=== PATIENT | female | born 1965 | race Caucasian/White ===

== ENCOUNTER 2022-12-23 12:19 | Emergency (ER) | payer OTHER, SELFPAY ==
[2022-12-23] VITALS (7 sets, daily range): BP systolic 118–131; BP diastolic 52–74; PULSE 78–89; RESP 16; TEMP 36.6; O2SAT 95–98
--- NOTE | ~2022-12-23 | CT_ITS ---
EXAMINATION: CT brain wo con DATE: 12/23/2022 16:18 INDICATION: Dizziness. TECHNIQUE: Computed tomography (CT) of the head was performed without intravenous contrast. The mA wa s adjusted according to patient size. Iterative reconstruction technique was employed. The dose-lengt h product was 605.33 mGy-cm. COMPARISON: None FINDINGS: There is no intracranial hemorrhage, acute infarction, or abnormal intracranial mass lesion . The ventricles are normal in size. The orbits are normal. There is mild mucosal thickening in the p aranasal sinuses. The mastoid air cells are normal. IMPRESSION: 1. Normal brain. Reviewed, dictated and finalized at location A. NEERING SCIENTIST IMPRESSION: 1. Normal brain.
--- NOTE | ~2022-12-23 | XR_ITS ---
EXAMINATION: XR chest 1V portable INDICATION: Dizziness TECHNIQUE: Portable AP chest at 1553 hours COMPARISON: None available FINDINGS: The lungs are free of acute opacities. No pleural effusion or pneumothorax. The cardiomedia stinal silhouette is normal. IMPRESSION: 1. No acute cardiopulmonary abnormality. Reviewed, dictated and finalized at location B. LITIES ADMINISTRATOR
--- NOTE | 2022-12-23 12:29 | ECG_ITS ---
Measurements Intervals [place] Rate: 85 P: 60 TX: 126 QRS: 47 QRSD: 85 T: 40 QT: 374 QTc: 445 Interpretive Statements SINUS RHYTHM BASELINE ARTIFACT NONSPECIFIC T-WAVE ABNORMALITY BORDERLINE ECG NO PREVIOUS ECG AVAILABLE FOR COMPARISON Electronically Signed On 12-23-2022 16:22:36 GYMNASTIC COACH by Jef Watts M.D.
[2022-12-23 13:05] LABS: Basophils Absolute Auto 0.1 K/mm3 (0.0-0.1); Basophils Percent Auto 1.5 % (0.2-1.2); Eosinophils Absolute Auto 0.6 K/mm3 (0-0.3); Eosinophils Percent Auto 6.3 % (0-4.4); Hematocrit 43.9 % (37.0-47.0); Hemoglobin 14.4 g/dL (12.0-15.0); Immature Granulocyte Absolute 0.02 K/mm3 (0.00-0.031); Immature Granulocyte Percent A 0.2 % (0-0.5); Lymphocytes Absolute Auto 3.35 K/mm3 (0.9-3.2); Lymphocytes Percent Auto 37.4 % (18.3-44.2); Mean Corpuscular HGB Conc 32.8 g/dl (32-36); Mean Corpuscular Hemoglobin 31.8 pg (26-34); Mean Corpuscular Volume 96.9 fl (80-100); Mean Platelet Volume 9.4 fl (7.4-10.4); Monocytes Absolute Auto 0.5 K/mm3 (0.1-0.6); Monocytes Percent Auto 5.8 % (2.6-8.5); Neutrophils Absolute Auto 4.4 K/mm3 (1.3-6.7); Neutrophils Percent Auto 48.8 % (45.5-73.1); Platelet Count Result 323 k/mm3 (150-375); Red Blood Count 4.53 M/mm3 (4.2-5.4); Red Cell Distribution Width 14.2 % (11.5-14.5)
[2022-12-23 13:17] LABS: Alanine Aminotransferase 20 U/L (6-35); Albumin Level 4.2 g/dL (3.5-5.1); Alkaline Phosphatase 75 U/L (38-126); Anion Gap 5 mmol/L (8-16); Aspartate Amino Transferase 21 U/L (14-36); Bilirubin,Total 0.6 mg/dL (0.2-1.3); Blood Urea Nitrogen 12 mg/dL (7-17); Calcium 8.5 mg/dL (8.4-10.2); Carbon Dioxide 27 mmol/L (22-30); Chloride 102 mmol/L (98-107); Estimated CRCL calculation 80 ml/min; Estimated Glomerular Filt Rate > 60; Glucose 106 mg/dL (65-110); Sodium 134 mmol/L (137-145)
--- NOTE | 2022-12-23 15:49 | ED.GENADULT ---
HPI - General Adult General Chief complaint: Dizziness Stated complaint: dizziness Time Seen by Provider: 12/23/22 15:19 Source: RN notes reviewed History of Present Illness HPI narrative: Patient presents emergency room from home for dizziness. Patient states she initially had awoken from sleep approximately 630 this morning when she felt dizzy but got back to bed and states that she woke up at approximately 1130 and had been feeling dizzy to try to get up and felt she was going to pass out. She states that the dizziness is remained with her since that time. States the dizziness is worse with getting up and moving and better with rest but does feel dizzy at rest she denies any numbness or tingling in the extremity she denies any vision changes she denies any chest pain shortness of breath nausea vomiting or any other symptoms Related Data Allergies Allergy/AdvReac Type Severity Reaction Status Date / Time Penicillins Allergy Severe Anaphylaxis Verified 12/23/22 15:13 tetracycline Allergy Unknown Rash Verified 12/23/22 15:13 ibuprofen [From Motrin] Allergy Wheezing Verified 12/23/22 15:13 TETRACYCLINE Allergy Unknown Dizziness Uncoded 12/23/22 15:13 Review of Systems Review of Systems: Gen.: Denies fevers or chills Eyes: Denies eye pain or visual change ENT: Denies congestion Respiratory: Denies shortness of breath or cough CV: Denies chest pain or palpitations GI: Denies abdominal pain nausea, emesis Musculoskeletal: Denies back pain or muscle pain Neuro: See HPI Skin: Denies rash Except as documented, all other systems reviewed and negative PMFSH Past Medical History Medical History (Updated 12/23/22 @ 19:18 by Sidney Logan DO) Patient denies significant medical history Social History Social History (Updated 12/23/22 @ 15:51 by Sidney Logan DO) Smoking status: Never smoker Exam Narrative: APPEARANCE: No acute distress, nontoxic, resting in bed HEENT: Normocephalic, atraumatic, OMM, TMs clear bilaterally EYES: PERRL, EOMI RESPIRATORY: No respiratory distress, clear to auscultation bilaterally with no rhonchi wheezing or rales CARDIOVASCULAR: RRR s murmur ABDOMINAL: Soft, nontender, nondistended MUSCULOSKELETAL: Moves all extremities. No clubbing, cyanosis or edema. NEURO: A and O ?3, following commands, speech normal, cranial nerves II through XII grossly intact,muscle strength 5 out of 5 bilateral upper and lower extremities no pronator drift SKIN:: Warm, dry. Normal Color PSYCHIATRIC: Normal affect/mood Course Course Emergency Course: Patient states dizziness is improved at this time she has been able to get up and ambulate with no difficulty Discussed with patient results of workup and diagnosis. Discussed need for follow-up with primary care, proper use of medication, and reasons to return to the emergency department. Patient understands and agrees to current treatment plan Vital Signs Vital signs: Vital Signs Temperature 97.9 F 12/23/22 12:23 Pulse Rate 89 12/23/22 12:23 Respiratory Rate 16 12/23/22 12:23 Blood Pressure 118/63 12/23/22 12:23 Pulse Oximetry 98 12/23/22 12:23 Oxygen Delivery Room Air 12/23/22 12:23 Temperature 97.9 F 12/23/22 12:23 Pulse Rate 88 12/23/22 18:10 Respiratory Rate 16 12/23/22 18:10 Blood Pressure 125/74 12/23/22 18:10 Pulse Oximetry 96 12/23/22 18:10 Oxygen Delivery Room Air 12/23/22 12:23 Medical Decision Making MDM Narrative Medical decision making narrative: Patient's episode of near-syncope is not felt due to high risk cause. Near-syncopal episode was brief and patient is now back to normal mental status. EKG is reviewed without high-risk changes for syncope: There are no signs of prolonged QT or Brugada syndrome. Patient ambulates with a steady gait and is felt to be a reasonable candidate for further evaluation as an outpatient management Patient's vertigo is felt to be likely peripheral in origin. There
[2022-12-23] MEDS: MECLIZINE HCL 25 MG TABLET PO (16:14)
[2022-12-23] MEDS: SODIUM CHLORIDE 0.9% IV 1,000 ML 999 ML IV CONT (16:14)
[2022-12-23 16:20] LABS: Appearance Urine Clear (Clear); Bilirubin Urine Negative (Negative); Blood Urine Trace-intact (Negative); Color Urine Yellow (Yellow); Glucose Urine UA Negative (Negative); Ketones Urine Negative (Negative); Leukocyte Esterase Ur Negative LEU/UL (Negative); Nitrate Urine Negative (Negative); Protein Urine Negative (Negative); Urobilinogen Urine 0.2 mg/dL (<2.0)
[2022-12-23 16:25] LABS: Bacteria Urine Trace /hpf; Mucus Urine Rare /lpf; RBC Urine 0-2 /hpf (0-2); Squamous Epithelial Cell Urine Occasional /hpf (Few); WBC Urine 0-3 /hpf
[2022-12-23 16:31] LABS: Add Urine Microscopic? YES
[2022-12-23 16:47] LABS: Influenza A QL RT-PCR Negative (Negative); Influenza B QL RT-PCR Negative (Negative); SARS-CoV-2 RNA PCR Negative
[2022-12-23 18:51] LABS: Troponin I < 0.012 ng/mL (0.000-0.034)
== END 2022-12-23 19:29 | disposition home or self-care (01) ==
PROVIDERS: Emergency Provider Emergency Medicine
DX: R55 Syncope and collapse (principal); Z20.822 Contact with and (suspected) exposure to COVID-19; R94.31 Abnormal electrocardiogram [ECG] [EKG]
CPT/HCPCS: 36415; 70450; 71045; 80053; 81001; 81025; 84484; 85025; 87636; 93005; 96360; 96361; 99284; A9270; J7030

== ENCOUNTER 2023-10-20 18:12 | Emergency (ER) | payer OTHER, SELFPAY ==
--- NOTE | 2023-10-20 18:16 | ED.LOWEXIN ---
HPI - Extremity Injury (Lower) General Chief Complaint: Extremity Injury, Lower Stated Complaint: Injured leg Time Seen by Provider: 10/20/23 18:16 Source: patient Mode of arrival: ambulatory Limitations: no limitations History of Present Illness HPI Narrative: Patient is a 58-year-old female who presents with right knee pain that happened during an injury a work on . Patient reports she was falling and stuck right leg out straight locking knee and feeling a pop on lateral side of knee. Patient states each day the pain has improved until today it has states same. Patient still reports mild swelling to lateral side of knee and pain with walking. Has not been taking anything for pain. Patient has been using heating pad. Denies any numbness, tingling or weakness to lower extremity. Reports swelling has improved significantly. Related Data Allergies Allergy/AdvReac Type Severity Reaction Status Date / Time Penicillins Allergy Severe Anaphylaxis Verified 10/20/23 18:21 tetracycline Allergy Unknown Rash Verified 10/20/23 18:21 doxycycline Allergy Vomiting Verified 10/20/23 18:21 ibuprofen [From Motrin] Allergy Wheezing Verified 10/20/23 18:21 TETRACYCLINE Allergy Unknown Dizziness Uncoded 10/20/23 18:21 Review of Systems Review of Systems: All systems reviewed & are unremarkable except as noted in HPI and below Constitutional: Constitutional: Denies body ache(s), Denies chills, Denies fatigue, Denies fever(s), Denies headache(s), Denies malaise and Denies weakness Eyes: Eyes: Denies blurry vision, Denies irritation and Denies loss of vision ENT: Denies otalgia, Denies headache(s), Denies nasal discharge, Denies sinus pain and Denies sore throat Cardiovascular: Cardiovascular: Denies chest pain, Denies irregular heart rhythm and Denies dyspnea Respiratory: Respiratory: Denies dyspnea Gastrointestinal: Gastrointestinal: Denies abdominal pain, Denies melena, Denies hematochezia, Denies diarrhea, Denies nausea and Denies vomiting Musculoskeletal: Musculoskeletal: Denies back pain, Denies myalgias and Reports arthralgias Integumentary/Breasts: Skin/Breast: Denies pruritus and Denies rash Neurologic: Denies headache(s), Denies loss of vision and Denies weakness Psychiatric: Psychiatric: Reports no additional psychiatric complaints Endocrine: Endocrine: Denies fatigue PMFSH Past Medical History Medical History Patient denies significant medical history Social History Social History Smoking status: Never smoker Comments At time of signature, agree with nursing past medical, surgical, social and family history. There is no relevant family history pertinent to the presenting complaint. Exam Const: General: cooperative, healthy appearing, comfortable, no acute distress and well nourished Nutritional Appearance: well nourished Orientation/consciousness: patient oriented x3 Limitations: no limitations HENMT: Head: normal to inspection, normocephalic and atraumatic Ears: hearing grossly normal bilaterally and external ears normal Face/Nose/Sinus: Normal external nose present, normal facial exam and face symmetric Face and sinus: normal facial exam and face symmetric Mouth: Yes lip normal Eyes: General: appearance normal, both eyes and all related structures Alignment and Position: alignment normal and position normal Periorbital: periorbital findings normal Eyelids: eyelids normal Pupils: Equal, round and reactive pupils present EOM: EOMs intact bilaterally Neck: Neck: normal visual inspection, full ROM and supple Chest: Chest palpation & inspection: normal inspection of the chest Resp: Effort & Inspection: normal respiratory effort and able to speak in complete sentences Auscultation: clear to auscultation bilaterally Cardio: Rate: regular rate Rhythm: regular rhythm Heart sounds: S1 normal
[2023-10-20 18:23] VITALS: BP 141/74; PULSE 90; RESP 16; TEMP 36.6; O2SAT 99
== END 2023-10-20 18:44 | disposition home or self-care (01) ==
PROVIDERS: Emergency Provider Nurse Practitioner Family
DX: S83.421A Sprain of lateral collateral ligament of right knee, initial encounter (principal); W19.XXXA Unspecified fall, initial encounter
CPT/HCPCS: 99213; G0463

== ENCOUNTER 2025-09-17 16:41 | Emergency (ER) | payer OTHER, MEDICAID, SELFPAY ==
--- OUTSIDE RECORDS SUMMARY | 2025-09-17 16:47 | XMS_ITS | Clinical Summary ---
Author Organization [facility] Address [address] [place] [address] Care Team Providers Care Coke Oven Mason Name Role Phone Perez Lerma MD Primary Care Provider + Desirae Bruce DPM Unavailable [phone] Allergies Active Allergy Reactions Criticality Noted Date Comments Ibuprofen Other (see comment) 05/25/2019 Wheezing issues Penicillins Anaphylaxis High 05/25/2019 Tetracyclines & Related Rash Low 05/29/2019 Medications Terbinafine 1 % Gel Apply fingertip amount to affected toe twice daily 12 g 2 Active HYDROXYZINE HCL OR Take by mouth as needed. Active Acetaminophen (TYLENOL 8 HOUR OR) Take by mouth as needed. Active traMADol (ULTRAM) 50 MG tabletIndications :Chronic Pain Take 1 tablet (50 mg total) by mouth every 12 (twelve) hours as needed for Pain. Indications: Chronic Pain 60 tablet 4 Active losartan (COZAAR) 50 MG tabletIndications :Primary hypertension Take 1 tablet (50 mg total) by mouth daily. 30 tablet 1 5 Active Active Problems Problem Noted Date Diagnosed Date Hypertrophy of fat pad of knee 05/06/2025 Chondromalacia of left patella 05/06/2025 Anxiety with depression 05/23/2022 Chronic right-sided low back pain 04/26/2022 Obesity (BMI 30.0-34.9) 03/26/2022 Gross hematuria 06/10/2019 Ureteral calculus, left 06/03/2019 Nephrolithiasis 06/03/2019 Encounters Date Type Department Care Team Description 07/19/[address] [id number] Perez Lerma MD Fax 07/18/2025 Results Follow-Up [address] [address] Perez Lerma MD Short Term Holter 24 or 48 Hours 06/30/2025 10:00 AM CDT Telephone [facility], [address] [address] Perez Lerma MD Holter Monitor 06/23/2025 4:59 PM CDT - 06/23/2025 11:59 PM CDT Hospital Encounter [facility] [address] [place] [id number] Nishi Delvalle, IMMUNOHEMATOLOGIST Scarlet Woodruff, TECHNICAL SERVICE REPRESENTATIVE Knee Pain Discharge Disposition: Home or Self Care (Routine Discharge) 06/23/2025 Travel 06/20/2025 4:51 PM CDT - 06/20/2025 11:59 PM CDT Hospital Encounter [facility] [address] [place] [id number] Nishi Delvalle, IMMUNOHEMATOLOGIST Angella Pagan, TECHNICAL SERVICE REPRESENTATIVE Knee Pain Discharge Disposition: Home or Self Care (Routine Discharge) 06/20/2025 1:40 PM CDT Office Visit [address] [phone] Perez Lerma MD Follow Up (Pt here for a handful of issues.) 06/20/2025 Travel 06/17/2025 1:59 PM CDT - 06/17/2025 11:59 PM CDT Hospital Encounter [facility] [address] [place] [address] Amor Chan, PT Nishi Delvalle, IMMUNOHEMATOLOGIST Knee Pain Discharge Disposition: Home or Self Care (Routine Discharge) 06/17/2025 Travel from Last 3 Months Immunizations Immunization Administration Dates Next Due Tdap (Adacel) 04/16/2022 Family History Medical History Relation Comments Arthritis Daughter 1 Started at 2 yea rs of age when came in contact with tree pollen Asthma Daughter 1 Since age 3 Mental Health Daughter 1 Zoloft for anxie ty and depression Asthma Daughter 2 Same time as Nolberto en contact with yes pollen. Childhood grew out of it Retardation/Learning Difficulties Daughter 3 No known cause Arthritis Father Adult onset Asthma Father COPD Father Diabetes Father Heart Disease Father Hypertension Father Heart Disease Maternal Grandfather Diabetes Maternal Grandmother Type 2 Arthritis Mother Cancer Mother Colon Depression Mother Diabetes Paternal Aunt Juvenile Type I Early Paternal Grandmother Age 44: Con gestive heart failure from valve insufficiency Diabetes Paternal Uncle Type 2 Heart Disease Sister 1 pvd Sister 1 Arthritis Sister 2 Started at 5 yea rs old when came in contact with a cat Asthma Sister 2 Since age 5 Defects Sister 3 No one knows cau se or diagnosis in spite of testing Breast Cancer Neg Hx Relation Status Comments Daughter 1 Alive Daughter 2 Alive Daughter 3 Alive Father Maternal Grandfather Alive Maternal Grandmother Alive Mother Paternal Aunt Alive Paternal Grandmother Alive Paternal Uncle Alive Sister 1 Sister 2 Alive Sister 3 Alive Social History Tobacco Use Types Packs/Day Years Used Date Smoking Tobacco: Every Day Cigarettes 0.8 25 Smokeless Tobacco: Never Tobacco Cessation:Ready to Q uit: Not Asked; Counseling Given: Yes Comments:current smoker Alcohol Use Standard Drinks/Week Comments No 0 (1 standard drink = 0.6 oz pur e alcohol) AUDIT-C Answer Date Recorded Frequency of Alcohol Consumption Never 05/25/2019 Average Number of Drinks Not on file 019 Frequency of Binge Drinking Not on file 07/2019 PHQ-2 Answer Date Recorded Patient Health Questionnaire-2 Score 2 03/14/2025 Comments No Sex and Gender Information Value Date Recorded Sex Assigned at Not on file Legal Sex Female 7:26 PM CDT Gender Identity Female 03/21/2022 6:22 AM CDT Sexual Orientation Straight 03/21/2022 6: 22 AM CDT Last Filed Vital Signs Vital Sign Reading Time Taken Comments Blood Pressure 138/82 06/20/2025 1:43 PM CDT Pulse 95 06/20/2025 1:43 PM CDT Temperature 36.9 C (98.5 F) 06/20/2025 1:43 PM CDT Respiratory Rate 20 06/20/2025 1:43 PM CDT Oxygen Saturation 95% 06/20/2025 1:43 PM CDT Inhaled Oxygen Concentration - - Weight 80.9 kg (178 lb 6.4 oz) 06/20/2025 1:43 P M CDT Height 167.6 cm (5' 6) 06/20/2025 1:43 PM CDT Body Mass Index 28.79 06/20/2025 1:43 PM CDT Plan of Treatment Health Maintenance Due Date Last Done Comments Cervical Cancer Screening Pa p Smear (Age 30 to 64) Every 3 Years 1964 Colorectal Cancer Screening Colonoscopy (10 Years) 1964 Annual Physical 1967 Hepatitis C 1982 Pneumococcal Vaccine: 50+ Years (1 of 2 - PCV) 1983 Cervical Cancer Screening Pa p with HPV Testing (Age 30 to 64) Every 5 Years 1994 Cervical Cancer Screening wi th HPV 1994 Zoster Vaccines (1 of 2) 2014 COVID-19 Vaccine (4 - 2024-2 6 season) 2025 11/22/2021, 02/28/2021, 01/04/2021 Influenza Adult (#1) 2025 Mammogram Screening 02/11/2026 02/12/2024 DTaP, Tdap and Td Vaccines ( 2 - Td or Tdap) 04/16/2032 04/16/2022 RSV Immunization or 60+ Years (1 - 1-dose 75+ series) 2039 PHQ-2 (Physician Popejoy) Completed 03/14/2025 Hepatitis A Vaccines Aged Out No long er eligible based on patient's age to complete this topic Meningococcal B Vaccine Aged Out No l onger eligible based on patient's age to complete this topic Meningococcal Vaccine Aged Out No brad mariia eligible based on patient's age to complete this topic RSV Immunizations Under 20 Months Aged Out No longer eligible b ased on patient's age to complete this topic Medical Devices Implanted Type Area Vegetable Farmer Device Identifier Shelf Expiration Date Model / Serial / Lot Stent Bard [place] 6fr X 26cm - [id number] Implanted:Qty: 1 on 06/22/2019 by Mayank Nieves MD at [facility] Stent Left: Ureter [employer] 09/23/2023 [id number] / / [id number] Procedures Procedure Name Priority Date/Time Associated Diagnosis Comments XTRNL ECG REC<48 HRS RECORDING SCAN A/R R&I Routine 07/12/2025 4:05 PM CDT Palpitations MG SCREENING W ILIANA JADEN DIGI Routine 02/12/2024 1:16 PM CDT Visit for screening mammogram from Last 3 Months or Most Recently Relevant to Health Maintenance Results * Short Term Holter 24 or 48 Hours (07/12/2025 4:05 PM CDT) Impressions [facility] - 07/12/2025 4:05 PM CDT [facility] [address] [place], [place] [address] HOLTER MONITOR REPORT Patient Name: Suri Edmond : 1965 Shellfish Manager Date: 07/07/2025@12:57 PM Performed At: Home, [place] Interpreting Director Of Testing: Dong Red MD PCP: PEREZ LERMA MD Ordering Provider: PEREZ LERMA MD INDICATION: Palpitations DURATION OF MONITORIN hours, 0 minutes BASELINE RHYTHM: Sinus rhythm HEART RATE: Minimum: 67 BPM, Maximum: 128 BPM, Average: 82 BPM PAUSES: 0 (> 3.0 seconds) INTERPRETATION: A 48hrs Holter was analyzed which did not include symptom triggered episodes. There were 240,317 QRS complexes analyzed. The baseline rhythm was sinus rhythm. There were rare isolated premature ventricular contractions (<1%). There was also rare isolated premature atrial contractions (<1%). There was 0 minutes of bradycardia recorded. There was 2 hours 15 minutes of tachycardia. CONCLUSION: 48hrs Holter with no clinically significant arrhythmias. Interpreting Director Of Testing: Dr. Dong Red Perez Lerma MD PROCEDURES Final Re sult [facility] CARDIOVASCULAR * MG SCREENING W ILIANA GASTELUM (02/12/2024 1:16 PM CDT) Anatomical Region Laterality Modality Breast Bilateral Mammography 02/12/2024 5:06 PM CDT Narrative 02/12/2024 5:13 PM CDT EXAMINATION: Digital bilateral screening mammogram with 3-D tomosynthesis EXAM DATE/TIME: 02/12/2024 1:01 PM REASON FOR EXAM: screening COMPARISON: Reestablish baseline Technique: Digital screening mammography of both breasts was performed in addition to 3-D Tomosynthesis technique. This study was read with the assistance of a computer-aided detection system. Tissue density: There are scattered areas of fibroglandular density. Findings: Benign calcifications. There is no focal asymmetry, dominant mass lesion, area of skin thickening, or cluster of suspicious appearing calcifications in either breast to suggest malignancy. ===== IMPRESSION: ===== 1. No mammographic evidence of malignancy. Assessment: ACR BI-RADS 2 - BENIGN FINDING(S) Recommendation: 1:Routine Screening Bilateral Comments: Ordered By: PEREZ LERMA Interpreted By: Len Vega, 02/12/2024 5:06 PM Perez Lerma MD MAMMO Final Re sult from Last 3 Months or Most Recently Relevant to Health Maintenance Insurance MEDICAID MEDICAL REIM[employer]SEMENTS OF [place] Advance Directives Documents on File Type Date Recorded Patient Paper Bag Inspector Expl anation Legal Documents 05/25/2019 9:07 AM realease of health info * Full Code (Latest Code Status on File) Date Activated Date Inactivated Comments 06/22/2019 2:38 PM 06/22/2019 6:30 PM Care Teams Coke Oven Mason Relationship Specialty Start Date End Date Perez Lerma MD [address] [facility] [address] [place] [address] PCP - General FAMILY PRACTICE 01/26/24 Desirae Bruce DPM [address] [place] [address] Referring Physician Cnmt - Foot & Ankle Surgery 09/06/25
--- OUTSIDE RECORDS SUMMARY | 2025-09-17 16:47 | XMS_ITS | Encounter Summary ---
Author Organization [facility] Address [facility] [place] [address] Care Team Providers Care Resident Programs Assistant Name Role Phone Isabel Teran NP Primary Care Provider [phone] Perez Winkler MD Primary Care Provider + Desirae Bruce DPM Unavailable [phone] Encounter Details Date Type Department Care Team (Late st Contact Info) Description 06/04/2022 [employer] Message Enc [facility] Family & Internal Medicine [address] [address] [facility] Paperwork Social History Tobacco Use Types Packs/Day Years Used Date Smoking Tobacco: Every Day Cigarettes 0.8 25 Smokeless Tobacco: Never Comments:current smoker Alcohol Use Standard Drinks/Week Comments No 0 (1 standard drink = 0.6 oz pur e alcohol) AUDIT-C Answer Date Recorded Frequency of Alcohol Consumption Never 05/25/2019 Average Number of Drinks Not on file 019 Frequency of Binge Drinking Not on file 07/2019 PHQ-2 Answer Date Recorded PHQ-2 Score - If the patient scores above 3, please move on to questions 3-9 6 03/26/2022 Comments No Sex and Gender Information Value Date Recorded Sex Assigned at Not on file Legal Sex Female 7:26 PM CDT Gender Identity Female 03/21/2022 6:22 AM CDT Sexual Orientation Straight 03/21/2022 6: 22 AM CDT COVID-19 Exposure Response Date Recorded In the last 10 days, have yo u been in contact with someone who was confirmed or suspected to have Coronavirus/COVID-19? No / Unsure 05/31/2022 1:31 PM CDT documented as of this encounter Plan of Treatment Not on file documented as of this encounter Visit Diagnoses Not on filedocumented in this encounter Additional Health Concerns Assessment Noted Time PHQ-9 Depression Total Score: 20 022 10:30 AM CDT documented as of this encounter Care Teams Resident Programs Assistant Relationship Specialty Start Date End Date Isabel Teran, MAINTENANCE SUPERVISOR MECHANICAL [address] [facility] [address] [place] [address] PCP - General Nurse Practitioner Family 03/22/2201/15 Perez Winkler MD [address] [facility] [address] [place] [address] PCP - General FAMILY PRACTICE 01/26/24 Desirae Bruce DPM [address] [place] [address] Referring Physician Cancer Researcher - Foot & Ankle Surgery 09/06/25 documented as of this encounter
--- OUTSIDE RECORDS SUMMARY | 2025-09-17 16:47 | XMS_ITS | Clinical Summary ---
Author Organization [facility] Address [address] [facility] [address] Umanzor: Epic Prelude ADT [place] [address] Care Team Providers Care Road Train Driver Name Role Phone Unavailable Primary Care Provider Unavailabl e Encounters Date Type Department Care Team Description 09/14/2025 External Device Data STL ABSTRACTION Provider, Abstract 09/14/2025 External Device Data ST[facility] ABSTRACTION Provider, Abstract 06/22/2025 External Device Data STL ABSTRACTION Provider, Abstract 06/21/2025 External Device Data STL ABSTRACTION Provider, Abstract 06/21/2025 External Device Data STL ABSTRACTION Provider, Abstract from Last 3 Months Social History Tobacco Use Types Packs/Day Years Used Date Smoking Tobacco: Never Assessed Comments Unknown Sex and Gender Information Value Date Recorded Sex Assigned at Not on file Legal Sex Female 4:28 AM FLUME TENDER Gender Identity Not on file Sexual Orientation Not on file Plan of Treatment Health Maintenance Due Date Last Done Comments DTAP/TDAP/TD VACCINES (1 - Tdap) 1983 HPV/Cotest (21-29) 1985 CERVICAL CANCER SCREENING 1994 HPV/Cotest (30-65) 1994 PAP SMEAR 1994 BREAST CANCER SCREENING 2004 COLORECTAL SCREENING 2009 Colorectal Cancer Screening 2009 FIT-DNA Q 3 years 2009 FIT/FOBT Q 1 year 2009 Flex Sig/CT Colonography Q 5 years 2009 ZOSTER VACCINE (1 of 2) 2014 INFLUENZA VACCINE (#1) 2025 RSV VACCINE (60+ or ) (1 - 1-dose 75+ series) 2039
--- OUTSIDE RECORDS SUMMARY | 2025-09-17 16:47 | XMS_ITS | Encounter Summary ---
Author Organization [employer] Address [address] [place] [address] Care Team Providers Care Radiation Protection Engineer Name Role Phone Unavailable Primary Care Provider Unavailabl e Encounter Details Date Type Department Care Team (Late st Contact Info) Description 09/14/2025 External Device Data [facility] ABSTRACTION Provider, Abstract NO ADDRESS ON FILE Social History Tobacco Use Types Packs/Day Years Used Date Smoking Tobacco: Never Assessed Comments Unknown Sex and Gender Information Value Date Recorded Sex Assigned at Not on file Legal Sex Female 4:28 AM REMOTE ADVISOR Gender Identity Not on file Sexual Orientation Not on file documented as of this encounter Plan of Treatment Not on file documented as of this encounter Visit Diagnoses Not on filedocumented in this encounter
--- OUTSIDE RECORDS SUMMARY | 2025-09-17 16:47 | XMS_ITS | Encounter Summary ---
Author Organization [employer] Address [address] [place] [address] Care Team Providers Care Animal Rides Manager Name Role Phone Unavailable Primary Care Provider Unavailabl e Encounter Details Date Type Department Care Team (Latest Contact Info) Description 11/26/1999 Inpatient Historical HIS PATIENT IN A BED Evelina Hwang MD [address] [facility] [address] [place] [address] First-degree perineal laceration, with delivery (Primary Dx) Social History Tobacco Use Types Packs/Day Years Used Date Smoking Tobacco: Never Assessed Comments Unknown Sex and Gender Information Value Date Recorded Sex Assigned at Not on file 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
--- OUTSIDE RECORDS SUMMARY | 2025-09-17 16:47 | XMS_ITS | Encounter Summary ---
Author Organization [employer] Address [address] [place] [address] Care Team Providers Care Electronics Recycler Name Role Phone Unavailable Primary Care Provider Unavailabl e Encounter Details Date Type Department Care Team (Latest Contact Info) Description 06/18/1999 Outpatient Historical [facility] Evelina Hwang MD [address] [facility] [address] [place] [address] Elderly multigravida with antepartum condition or complication (Primary Dx) Social History Tobacco Use Types Packs/Day Years Used Date Smoking Tobacco: Never Assessed Comments Unknown Sex and Gender Information Value Date Recorded Sex Assigned at Not on file 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
--- OUTSIDE RECORDS SUMMARY | 2025-09-17 16:47 | XMS_ITS | Encounter Summary ---
Author Organization [facility] Address [facility] [place] [address] Care Team Providers Care Pcb Designer Name Role Phone Perez Winkler MD Primary Care Provider + Desirae Bruce DPM Unavailable [phone] Encounter Details Date Type Department Care Team (Late st Contact Info) Description 04/21/2025 curated.by [facility] [address] [place] [address] [employer], [facility] Provider Letter Social History Tobacco Use Types Packs/Day Years [...] Orientation Straight 03/21/2022 6: 22 AM CDT documented as of this encounter Progress Notes * Tammy Robb RN - 04/22/2025 1:11 PM CDT [facility] paperwork faxed. TAMMY ROBB RN 04/22/2025 documented in this encounter Plan of Treatment Not on file documented as of this encounter Visit Diagnoses Not on filedocumented in this encounter Additional Health Concerns Assessment Noted Time PHQ-9 Depression Total Score: 16 02/01/ 024 4:11 PM CDT documented as of this encounter Care Teams Pcb Designer Relationship Specialty Start Date End Date Perez Winkler MD [address] [facility] [address] [place] [address] PCP - General FAMILY PRACTICE 01/26/24 Desirae Bruce DPM [address] [place] [address] Referring Physician Vehicle Trimmer - Foot & Ankle Surgery 09/06/25 documented as of this encounter
--- OUTSIDE RECORDS SUMMARY | 2025-09-17 16:47 | XMS_ITS | Clinical Summary ---
Author Organization [facility] Address [address] [facility] [place] [address] Care Team Providers Care Supervisor Composing Room Name Role Phone Perez Winkler MD Primary Care Provider + Source Comments [facility],non-owned Affiliates and Associated Physician Practices is amultiple site organization consisting of ambulatory clinics and hospital sitesin [place], [place] and [place]. This disclosure is being madepursuant to the Care Everywhere program and may not contain all information available regarding this patient. Last updated 18.[facility] Allergies Active Allergy Reactions Criticality Noted Date Comments Ibuprofen Other 05/25/2019 Wheezing issues Penicillins Anaphylaxis High 05/25/2019 Tetracyclines Rash Medium 05/29/2019 Medications * Be aware that medications may not be up to date on this document. Alwaysverify current medications with the patient. losartan (Cozaar) 50 MG tablet Take 1 (one) tablet by mouth once daily Active Acetaminophen (TYLENOL 8 HOUR PO) Active cyclobenzaprine (Flexeril) 10 MG tablet Take 1 (one) tablet by mouth 3 times daily 30 tablet 08/15/2025 Active diclofenac sodium (Voltaren) 1 % gel Apply 2 (two) g to affected area 4 times daily 100 g 08/15/2025 Active methylPREDNISol one (Medrol Dosepak) 4 MG tablet Take by mouth as directed Take as directed by mouth per package instructions. 21 tablet 08/15/2025 Active Encounters Date Type Department Care Team Description 08/15/2025 1:45 PM CDT Office Visit [facility] - Orthopedic Surgery [address] [place] [phone] Jose Woods MD Lumbar pain (Primary Dx) 08/15/2025 1:29 PM CDT - 08/15/2025 11:59 PM CDT Hospital Encounter [facility] - Orthopedics [address], [address] [place] [phone] Jose Woods MD Discharge Disposition: Home or Self Care 08/15/2025 Telephone [facility] - [facility] Surgery [address] [place] [phone] Jose Woods MD Question 08/15/2025 Travel 08/08/2025 Orders Only [facility] - [facility] [address] [place] [phone] Jose Woods MD Lumbar pain from Last 3 Months Social History Tobacco Use Types Packs/Day Years Used Date Smoking Tobacco: Never Assessed PHQ-2 Answer Date Recorded Patient Health Questionnaire-2 Score 4 08/15/2025 Comments Unknown Sex and Gender Information Value Date Recorded Sex Assigned at Not on file Legal Sex Female 2:45 PM CDT Gender Identity Not on file Sexual Orientation Not on file Plan of Treatment Health Maintenance Due Date Last Done Comments COLOGUARD (AGES 45-75) - COL ON CA SCREENING 1964 COLON MONITORING 1964 COLONOSCOPY - COLON CA SCREENING 1964 CT COLONOGRAPHY - COLON CA SCREENING 1964 Colorectal Cancer Screening 1964 FIT - COLON CA SCREENING 1964 FLEX SIG - COLON CA SCREENING 1964 LIPID TESTING 1964 HIV SCREENING 1979 HEPATITIS C SCREENING 07/06/1982 DTAP/TDAP/TD VACCINES (1 - Tdap) 1983 PAP SMEAR 1985 PNEUMOCOCCAL VACCINE 50+ (1 of 1 - PCV) 2014 ZOSTER VACCINE (1 of 2) 2014 DEPRESSION SCREENING 11/17/2024 COVID-19 VACCINE (1 - 2023-2 5 season) 2025 INFLUENZA VACCINE (#1) 2025 MAMMOGRAM 02/11/2026 02/12/2024, 02/12/2024 Respiratory Syncytial Virus (RSV) Vaccine Pt: or over 60 yrs (1 - 1-dose 75+ series) 2039 HEPATITIS B VACCINE Aged Out No longe r eligible based on patient's age to complete this topic HIB VACCINE Aged Out No longer eligi ble based on patient's age to complete this topic HPV VACCINE Aged Out No longer eligi ble based on patient's age to complete this topic MENINGOCOCCAL (Group B) VACCINE SHARED DECISION-MAKING Aged Out No longer eligible based on patient's age to complete this topic MENINGOCOCCAL GROUPS A/C/Y/W VACCINE Aged Out No longer eligible b ased on patient's age to complete this topic Procedures Procedure Name Priority Date/Time Associated Diagnosis Comments XR LUMBAR SPINE 2 OR 3VW Routine 08/15/2025 1:34 PM CDT Lumbar pain from Last 3 Months Results * XR Lumbar Spine 2 or 3Vw (08/15/2025 1:34 PM CDT) Anatomical Region Laterality Modality Spine Radiographic Jessica ging 08/15/2025 1:40 PM CDT Impressions 08/15/2025 1:45 PM CDT IMPRESSION: Grade 1 anterior spondylolisthesis of L5 relative to S1 seen in association with mild to moderate disc space narrowing and facet joint degenerative changes. Possible underlying pars defect cannot be excluded with certainty at the level of L5. Mild levoscoliosis. Radiodense material to the right of the lumbar spine as discussed above. > Interpreting Provider: Sidney Strauss MD on 08/15/2025 1:45 PM Narrative 08/15/2025 1:45 PM CDT PROCEDURE: XR LUMBAR SPINE 2 OR 3VW DATE/TIME OF EXAM: 08/15/2025 1:34 PM CLINICAL INFORMATION: None relevant/not provided if blank. Indication: M54.50: Lumbar pain Additional History: COMPARISON: None. FINDINGS: Full length weightbearing AP lateral views of the lumbar spine were obtained as well as a spot lateral view of the lumbosacral angle. There appears to be some curvilinear radiodense material seen to the right of the L2-L3 and L3 levels as well as radiodense material with a possible fluid/fluid level seen to the right of the L4-L5 level. This could be in relationship to the biliary tree, the right side of the urinary tract or the gastrointestinal tract. There are no prior studies available for comparison. On the AP view there is subtle levorotation extending from L3 to L5. On the lateral view there is approximately 8 mm of anterior spondylolisthesis of what appears to be L5 relative to S1. There is associated facet joint degenerative changes and moderate disc space narrowing. The remaining disc spaces and all of the lumbar vertebrae otherwise appear normal in height. Procedure Note Sidney Strauss MD - 08/15/2025 PROCEDURE: XR LUMBAR SPINE 2 OR 3VW DATE/TIME OF EXAM: 08/15/2025 1:34 PM CLINICAL INFORMATION: None relevant/not provided if blank. Indication: M54.50: Lumbar pain Additional History: COMPARISON: None. FINDINGS: Full length weightbearing AP lateral views of the lumbar spine were obtained as well as a spot lateral view of the lumbosacral angle. There appears to be some curvilinear radiodense material seen to theright of the L2-L3 and L3 levels as well as radiodense material with apossible fluid/fluid level seen to the right of the L4-L5 level. This could be in relationship to the biliary tree, the right side of the urinary tract or the gastrointestinal tract. There are no prior studies available for comparison. On the AP view there is subtle levorotation extending from L3 to L5. Onthe lateral view there is approximately 8 mm of anterior spondylolisthesisof what appears to be L5 relative to S1. There is associated facet joint degenerative changes and moderate disc space narrowing. The remaining disc spaces and all of the lumbar vertebrae otherwiseappear normal in height. IMPRESSION: Grade 1 anterior spondylolisthesis of L5 relative to S1 seenin association with mild to moderate disc space narrowing and facet joint degenerative changes. Possible underlying pars defect cannot be excluded with certainty at the level of L5. Mild levoscoliosis. Radiodense material to the right of the lumbar spine as discussed above. > Interpreting Provider: Sidney Strauss MD on 08/15/2025 1:45 PM Jose Woods MD DIAGNOSTIC IMAGING ORDERABLES Fi nal Result from Last 3 Months Insurance [facility] MEDICAID - [place] Care Teams Supervisor Composing Room Relationship Specialty Start Date End Date Perez Winkler MD [address] [facility] [address] [place] [address] PCP - General Family Medicine 08/04/25
--- OUTSIDE RECORDS SUMMARY | 2025-09-17 16:47 | XMS_ITS | Encounter Summary ---
Author Organization [facility] Address [facility] [place] [address] Care Team Providers Care Brine Process Operator Name Role Phone Peerz Winkler MD Primary Care Provider + Desirae Bruce DPM Unavailable [phone] Encounter Details Date Type Department Care Team (Late st Contact Info) Description 02/13/2024 [employer] [facility] [address] [place] [address] [employer], [facility] Provider results Social History Tobacco Use Types Packs/Day Years [...] Answer Date Recorded Patient Health Questionnaire-2 Score 5 02/02/2024 Comments No Sex and Gender Information Value Date Recorded Sex Assigned at Not on file Legal Sex Female 7:26 PM CDT Gender Identity Female 03/21/2022 6:22 AM CDT Sexual Orientation Straight 03/21/2022 6: 22 AM CDT documented as of this encounter Plan of Treatment Not on file documented as of this encounter Visit Diagnoses Not on filedocumented in this encounter Additional Health Concerns Assessment Noted Time PHQ-9 Depression Total Score: 16 024 4:11 PM CDT documented as of this encounter Care Teams Brine Process Operator Relationship Specialty Start Date End Date Perez Winkler MD [address] [email or web address] [address] [place] [address] PCP - General FAMILY PRACTICE 01/26/24 Desirae Bruce DPM [address] [place] [address] Referring Physician Mortgage Counselor - Foot & Ankle Surgery 09/06/25 documented as of this encounter
[2025-09-17 17:11] VITALS: BP 144/62; PULSE 76; RESP 20; TEMP 36.8; O2SAT 98
--- NOTE | 2025-09-17 17:37 | ED_ITS ---
HPI - General Adult General Chief complaint: Dental/Oral Stated complaint: Dental Pain Time Seen by Provider: 09/17/25 17:37 Source: patient Mode of arrival: ambulatory Limitations: no limitations History of Present Illness HPI narrative: 60-year-old female patient presents to [facility] with complaints of left lower dental pain that started last night. Patient states she has had a broken tooth there for a while. Patient states that the pain has started getting worse today and started radiating to the jaw patient states she has been taking a lot of Tylenol so unknown if she has any fevers but states she just feels malaise. Patient is an active smoker. Related Data Home Medications ?Medication ?Instructions ?Recorded ?Confirmed ?Last Taken ?Type losartan 50 mg tablet mg 09/17/25 Unknown History Allergies Allergy/AdvReac Type Severity Reaction Status Date / Time Penicillins Allergy Severe Anaphylaxis Verified 09/17/25 17:11 tetracycline Allergy Unknown Rash Verified 09/17/25 17:11 ibuprofen (From Motrin) Allergy Wheezing Verified 09/17/25 17:11 doxycycline AdvReac Intermediate Vomiting Verified 09/17/25 17:21 TETRACYCLINE Allergy Unknown Dizziness Uncoded 10/20/23 18:21 Review of Systems Review of Systems: CONSTITUTIONAL: Denies fever, chills, or sweats. EYES: Denies visual changes, redness, or discharge. ENT: Denies rhinorrhea, congestion, sore throat, or otalgia. Positive dental pain x2 days CARDIOVASCULAR: Denies chest pain, palpitations, or edema. RESPIRATORY: Denies cough or dyspnea. GASTROINTESTINAL: Denies abdominal pain, nausea, vomiting, or diarrhea. GENITOURINARY: Denies dysuria or hematuria. SKIN: Denies rash or itching. MUSCULOSKELETAL: Denies back pain, joint pain, or myalgia. NEUROLOGIC: Denies headache, numbness, or weakness. PSYCHIATRIC: Denies anxiety or depression. [facility] Past Medical History Medical History Patient denies significant medical history Social History Social History Smoking status: Never smoker Comments At the time of my signature I agree with nursing past medical history, surgical, social, and family history. There is no relevant family history pertinent to the presenting complaint. Exam Narrative: GENERAL: Well-appearing, well-nourished, and in no acute distress. HEAD: Normocephalic, atraumatic. EYES: PERRLA and EOMI. ENT: Nares clear, no rhinorrhea or epistaxis. Mucous membranes moist. patient has inflammation, erythema noted around the left lower molar. It does appear that the back molar is fractured no active draining at this time. NECK: Supple. No lymphadenopathy CHEST: Clear to auscultation. No respiratory distress. HEART: Regular rate and rhythm. No murmur heard. Normal peripheral pulses. ABDOMEN: Soft, nontender, nondistended, normal active bowel sounds. EXTREMITIES: Normal range of motion. No edema. SKIN: Warm, dry, no rash. NEURO: No focal deficits. Alert and oriented x3. Course Course Level of Care: Express Care Visit Vital Signs Vital signs: Vital Signs Temperature 36.8 C 09/17/25 17:11 Pulse Rate 76 09/17/25 17:11 Respiratory Rate 20 09/17/25 17:11 Blood Pressure 144/62 H 09/17/25 17:11 Pulse Oximetry 98 09/17/25 17:11 Oxygen Delivery Room Air 09/17/25 17:11 Temperature 36.8 C 09/17/25 17:11 Pulse Rate 76 09/17/25 17:11 Respiratory Rate 20 09/17/25 17:11 Blood Pressure 144/62 H 09/17/25 17:11 Pulse Oximetry 98 09/17/25 17:11 Oxygen Delivery Room Air 09/17/25 17:11 Vital signs reviewed. The patient has been informed that they may have pre- hypertension or Hypertension based on a BP reading in the department. I recommend that the patient call the primary care provider listed on their discharge instructions or a physician of their choice this week to arrange follow up for further evaluation of possible pre-hypertension or Hypertension Medical Decision Making MDM Narrative Medical decision making narrative: Plan care patient is discharged home with oral antibiotics for dental infection. A dental sheet was provided to the patient today and highly recommend that she follow up once the infection is gone to have the tooth removed so that the infection does not come back. Patient verbalized understanding denies any other questions or concerns at this time. Differential Diagnosis Differential Diagnosis: Differential diagnosis: Dental caries, periodontal disease, avulsed tooth, tooth infections, mandibular infection, Lai's angiana, upper tooth infection, dry socket, gingivitis, acute necrotizing ulcerative gingivitis, sialolithiasis. Vital Signs Vital Signs: Vital Signs Temperature 36.8 C 09/17/25 17:11 Pulse Rate 76 09/17/25 17:11 Respiratory Rate 20 09/17/25 17:11 Blood Pressure 144/62 H 09/17/25 17:11 Pulse Oximetry 98 09/17/25 17:11 Oxygen Delivery Room Air 09/17/25 17:11 Temperature 36.8 C 09/17/25 17:11 Pulse Rate 76 09/17/25 17:11 Respiratory Rate 20 09/17/25 17:11 Blood Pressure 144/62 H 09/17/25 17:11 Pulse Oximetry 98 09/17/25 17:11 Oxygen Delivery Room Air 09/17/25 17:11 Critical Care Time Critical Care Time Critical Care Time: No Discharge Plan Discharge Clinical Impression: Toothache Fracture of tooth Qualifiers: Encounter type: initial encounter Fracture type: open Qualified Code(s): S02.5XXB - Fracture of tooth (traumatic), initial encounter for open fracture Patient Disposition: Home Condition: Stable Instructions: Antibiotic Form, Mouth Care (ED), Gingivostomatitis (ED) Additional Instructions: Antibiotic as directed Avoid temperature extremes May apply heat or ice to the face Gentle brushing and flossing Alternate Tylenol and ibuprofen as needed for pain Follow-up with the dentist as soon as possible--see the list provided Increase your vitamin C intake to 2000 mg in the a.m. to 1000 mg in the p.m. while you have this infection and then go down to about a 1000 mg daily Patient Language: Welsh Prescriptions: New clindamycin HCl [Cleocin HCl] 300 mg capsule 300 mg PO Q8H 7 Days Qty: 21 0RF clindamycin HCl [Cleocin HCl] 150 mg capsule 150 mg PO Q8H 7 Days Qty: 21 0RF No Action losartan 50 mg tablet Follow-up/Referrals: PHYSICIAN,HOD CARRIER [Primary Care Provider, Internal Medicine] Time of Disposition: 17:46
== END 2025-09-17 17:47 | disposition home or self-care (01) ==
PROVIDERS: Emergency Provider Nurse Practitioner Family
DX: K08.89 Other specified disorders of teeth and supporting structures (principal); S02.5XXA Fracture of tooth (traumatic), initial encounter for closed fracture; X58.XXXA Exposure to other specified factors, initial encounter
CPT/HCPCS: 99213; G0463